=== PATIENT | female | born 1935 | race Caucasian/White ===

== ENCOUNTER 2017-05-16 22:17 | Emergency (ER) | payer OTHER, MEDICARE ==
[~2017-05-16] VITALS: Ht 172.7 cm; Wt 75.0 kg
[~2017-05-16 22:17] MED LIST: ASPIRIN ADULT L81 M1 PO; ASPIRIN81 MG PO; ATIVAN0.5 M1 PO; AZELASTINE; BIOTIN; BIOTIN1 TAB PO; CALCITRATE PO; CARAFATE1 PO; CENTRUM SILVER1 TA3; CENTRUM1 TA2 PO; CETIRIZINE PO; CHLORTRIMETON PO; CITRACIL; CYANOCOBALAMIN; FISH OIL; FLOVENT HF0.044 MG/A; FOLIC ACID; GAS-X PO; GLUCOSAMINE & C1 TA2; GLUCOSAMINE/CHONDROI PO; LOSARTAN POTASS1 TA1 PO; LOSARTAN POTASS1 TA6 PO; LUMIGAN 5 ML5 ML OU; LUMIGAN2.5 M1 OP; MAGNESIUM PO; METOPROLOL SUCC50 M2 PO; METOPROLOL SUCC50 MG PO; MUCINEX; OSCILLOCOCCINUM; PRA20 PO; PREVASTATIN SODIUM PO; PRILOSEC PO; PROAIR HFA0.09 MG/A1 IH; PROAIR HFA0.09 MG/Ac INH; PYRIDOXINE; RANITIDINE 150150 MG PO; SYSTANE; SYSTANE LUBRICAN5 ML; [UNRECOGNIZED DRUG - OTHER]; [UNRECOGNIZED DRUG - OTHER]; [UNRECOGNIZED DRUG - OTHER]; [UNRECOGNIZED DRUG - OTHER] PO; [UNRECOGNIZED DRUG - OTHER] PO; [UNRECOGNIZED DRUG - OTHER] PO
[2017-05-16 23:20] VITALS: BP 163/81
== END 2017-05-16 23:20 | disposition home or self-care (01) ==
LOC: ED 22:17
DX: S01.511A Laceration without foreign body of lip, initial encounter (principal); S01.81XA Laceration without foreign body of other part of head, initial encounter; S61.210A Laceration without foreign body of right index finger without damage to nail, initial encounter; S51.012A Laceration without foreign body of left elbow, initial encounter; I10 Essential (primary) hypertension; Z88.6 Allergy status to analgesic agent; Z88.5 Allergy status to narcotic agent; Z85.3 Personal history of malignant neoplasm of breast; Z85.72 Personal history of non-Hodgkin lymphomas; W22.03XA Walked into furniture, initial encounter; Y93.89 Activity, other specified; Y92.89 Other specified places as the place of occurrence of the external cause; Y99.8 Other external cause status
CPT/HCPCS: 90715; J2001

== ENCOUNTER 2017-05-18 11:09 | Emergency (ER) | payer OTHER, MEDICARE ==
[2017-05-18 11:26] VITALS: BP 141/76
== END 2017-05-18 12:40 | disposition home or self-care (01) ==
LOC: ED 11:09
DX: L03.211 Cellulitis of face (principal); S01.512D Laceration without foreign body of oral cavity, subsequent encounter; I10 Essential (primary) hypertension; X58.XXXD Exposure to other specified factors, subsequent encounter; Y92.89 Other specified places as the place of occurrence of the external cause; Y99.8 Other external cause status; Z85.3 Personal history of malignant neoplasm of breast; Z79.82 Long term (current) use of aspirin; Z88.5 Allergy status to narcotic agent; Z79.899 Other long term (current) drug therapy

== ENCOUNTER → 2017-05-25 | Outpatient (CLI) | payer OTHER, MEDICARE | END | disposition home or self-care (01) | LOC: CT 08:59 | PROC: BW21ZZZ Computerized Tomography (CT Scan) of Abdomen and Pelvis (ICD-10-PCS; principal; 2017-05-25) | DX: R10.30 Lower abdominal pain, unspecified (principal) | CPT/HCPCS: A9698 ==

== ENCOUNTER 2017-09-08 06:11 | Emergency (ER) | payer OTHER, MEDICARE ==
[2017-09-08 07:52] VITALS: BP 158/79
== END 2017-09-08 07:52 | disposition home or self-care (01) ==
LOC: ED 06:11
DX: S00.03XA Contusion of scalp, initial encounter (principal); W17.89XA Other fall from one level to another, initial encounter; Y93.89 Activity, other specified; Y92.89 Other specified places as the place of occurrence of the external cause; Y99.8 Other external cause status; S20.212A Contusion of left front wall of thorax, initial encounter; I10 Essential (primary) hypertension; E78.00 Pure hypercholesterolemia, unspecified; M54.5 Low back pain

== ENCOUNTER → 2018-04-12 | Outpatient (CLI) | payer OTHER, MEDICARE | END | disposition home or self-care (01) | LOC: US 16:34 | PROC: B54BZZZ Ultrasonography of Right Lower Extremity Veins (ICD-10-PCS; principal; 2018-04-12) | DX: R60.0 Localized edema (principal) ==

== ENCOUNTER → 2018-04-29 | Outpatient (CLI) | payer OTHER, MEDICARE | END | disposition home or self-care (01) | LOC: CT 08:40 | PROC: BN231ZZ Computerized Tomography (CT Scan) of Bilateral Orbits using Low Osmolar Contrast (ICD-10-PCS; principal; 2018-04-29) | PROC: BW281ZZ Computerized Tomography (CT Scan) of Head using Low Osmolar Contrast (ICD-10-PCS; 2018-04-29) | DX: H49.22 Sixth [abducent] nerve palsy, left eye (principal) | CPT/HCPCS: Q9967 ==

== ENCOUNTER → 2018-08-05 | Outpatient (CLI) | payer OTHER, MEDICARE | END | disposition home or self-care (01) | LOC: CT 08:42 | PROC: BW24ZZZ Computerized Tomography (CT Scan) of Chest and Abdomen (ICD-10-PCS; principal; 2018-08-05) | DX: R22.2 Localized swelling, mass and lump, trunk (principal) ==

== ENCOUNTER → 2019-12-20 | Outpatient (CLI) | payer OTHER, MEDICARE | END | disposition home or self-care (01) | LOC: RD 10:47 | DX: R20.0 Anesthesia of skin (principal) ==